=== PATIENT | male | born 1985 | race Caucasian/White ===

== ENCOUNTER 2023-05-20 18:00 | Outpatient (CLI) | payer OTHER, SELFPAY | END 2023-05-20 18:01 | disposition home or self-care (01) | PROVIDERS: PCP Family Medicine; Visit Provider Family Medicine | DX: Z00.00 Encounter for general adult medical examination without abnormal findings (principal); I10 Essential (primary) hypertension; E78.00 Pure hypercholesterolemia, unspecified; F41.9 Anxiety disorder, unspecified; Z76.89 Persons encountering health services in other specified circumstances | CPT/HCPCS: 80053; 80061; 84443 ==

== ENCOUNTER 2024-09-07 09:04 | Outpatient (CLI) | payer BC, SELFPAY | END 2024-09-07 09:05 | disposition home or self-care (01) | LOC: NFLDREF 09-11 08:14 | PROVIDERS: PCP Family Medicine; Referring Provider Family Medicine; Visit Provider Family Medicine | DX: Z00.00 Encounter for general adult medical examination without abnormal findings (principal); I10 Essential (primary) hypertension; E78.00 Pure hypercholesterolemia, unspecified; R68.82 Decreased libido; R53.83 Other fatigue | CPT/HCPCS: 80053; 80061; 84270; 84402; 84403 ==

== ENCOUNTER 2024-12-04 10:47 | Outpatient (CLI) | payer BC, SELFPAY | END 2024-12-04 10:48 | disposition home or self-care (01) | PROVIDERS: PCP Family Medicine; Visit Provider Family Medicine | DX: E29.1 Testicular hypofunction (principal); I10 Essential (primary) hypertension; R73.03 Prediabetes; F41.9 Anxiety disorder, unspecified; R53.83 Other fatigue | CPT/HCPCS: 84270; 84402; 84403 ==